=== PATIENT | female | born 1955 | race Caucasian/White ===

== ENCOUNTER 2020-07-25 08:33 | Day surgery (SDC) | payer MEDICARE, OTHER ==
[~2020-07-25] VITALS: Ht 158.8 cm; Wt 74.1 kg
[2020-07-25] VITALS (10 sets, daily range): BP systolic 138–162; BP diastolic 61–73; PULSE 54–81; TEMP 97.7–98.2
[2020-07-25] MEDS ORDERED: DEMADEX10 MG PO (09:00)
[2020-07-25] MEDS ORDERED: ESTRACE 1MG1 MG/TAB PO (09:01)
[2020-07-25] MEDS ORDERED: MAGNESIUM250 M1 PO (09:03)
[2020-07-25] MEDS ORDERED: CALCIUM 600 PLU1 TAB PO (09:04)
[2020-07-25] MEDS ORDERED: GLUCOSAMINE & C1 CA2 PO (09:05)
[2020-07-25] MEDS ORDERED: VITAMIN B COMPL1 SGL PO (09:06)
[2020-07-25] MEDS ORDERED: FLAXSEED OIL1000 MG PO (09:06)
[2020-07-25] MEDS ORDERED: THE MEDICINE S200 M2 PO (09:06)
[2020-07-25] MEDS ORDERED: NATURAL POTASS595 MG PO (09:07)
[2020-07-25] MEDS ORDERED: VITAMIND3 5000 PO (09:07)
[2020-07-25] MEDS ORDERED: PROBIOTIC FORMU1 CAP PO (09:07)
[2020-07-25] MEDS ORDERED: LIPITOR 10MG10 MG PO (09:08)
[2020-07-25] MEDS ORDERED: OCUVITE1 TA1 PO (09:08)
[2020-07-25] MEDS ORDERED: LIDEX CR 15GM TP (09:08)
[2020-07-25] MEDS ORDERED: MICARDIS80 MG PO (09:08)
[2020-07-25] MEDS ORDERED: MOTRIN 200200 MG/TAB PO (09:09)
[2020-07-25] MEDS ORDERED: TYLENOL 500MG500 MG PO (09:09)
[2020-07-25] MEDS ORDERED: TYLENOL PM EXTR1 TA1 PO (09:10)
[2020-07-25] MEDS ORDERED: PEPCID 20MG TAB20 MG PO (09:11)
--- NOTE | 2020-07-25 11:40 | NUR ---
The patient was taken back via cart to the operating room at this time. The patient's chart was sent with her to surgery. The patient's belongings were taken over to the recovery room and will be transferred up to the 3rd floor with the patient post operatively.
[2020-07-25] MEDS ORDERED: NORCO 325 MG-51 TAB PO (14:20)
[2020-07-25] MEDS ORDERED: COLACE 100100 MG/CAP PO (14:20)
--- NOTE | 2020-07-25 15:25 | NUR ---
PATIENT ARRIVED TO ROOM 330 VIA BED FROM PACU. PATIENT IS ALERT BUT DROWSY FROM SEDATION. ASSESSMENT COMPLETED AT THIS TIME. ABDOMINAL LAP SITES X5 MACO WITH EDGES WELL APPROXIMATED. INDWELLING ANDERSON CATHETER TO DEPENDENT DRAINAGE WITH LIGHT YELLOW-GREEN TINGED URINE. SCD'S TO BLE. SON PRESENT AT THE BEDSIDE. POST-OP VSS. WILL CONTINUE TO MONITOR.
--- NOTE | 2020-07-25 15:42 | NUR ---
PATIENT REPORTING ABDOMINAL PAIN RATED A 5/10 ON A 0-10 SCALE IN HER ABDOMEN. PATIENT UNABLE TO DESCRIBE THE PAIN. PATIENT TAKING WATER WITHOUT DIFFICULTIES. PATIENT GIVEN PRN TRAMADOL AT THIS TIME. WILL CONTINUE TO MONITOR.
--- NOTE | 2020-07-25 19:10 | NUR ---
PATIENT POST-OP VITALS STABLE AND COMPLETE. PATIENT STATES THAT SHE'S STARTING TO FEEL HUNGRY. PATIENT GIVEN CLEAR LIQUIDS ASSORTMENT. BEDSIDE REPORT GIVEN TO ANGIE SALAZAR.
--- NOTE | 2020-07-25 20:00 | NUR ---
Report received, assumed care for cook night. Assessment complete. VS stable. A&Ox3. Provided clear liquid diet. Will advance as tolerated. Denies pain/nausea/shortness of breath. Lap sites x5 to abdomen-edges well approximated. Plan of care discussed for this shift to include pain control/SCDs, ambulation and calling for questions/concerns. Verbalizes understanding/denies questions/concerns. Call light in reach. Will monitor.
--- NOTE | 2020-07-25 22:00 | NUR ---
Up out of bed for first time since surgery. Ambulated in hallway approx 200 feet without difficulty. Denies needs. Call light in reach. Will monitor.
[2020-07-26 01:03] VITALS: BP 131/55; PULSE 75; TEMP 98.2
[2020-07-26 03:45] VITALS: BP 118/60; PULSE 69; TEMP 98.2
--- NOTE | 2020-07-26 04:30 | NUR ---
Rested off and on this shift. TOlerating PO-diet advanced for breakfast. Adequate output to murphy cath-clear yellow urine. INTd per dr order. Pain adequately controlled wtih PO medications. Lap sites x5-no drainage noted. SCDs bilat/gum PRN. Denies needs. Call light in reach. Will monitor.
[2020-07-26 06:12] LABS: BASO % 0.3 % (0.0-2.0); EOS % 0.1 % (0-4.0); GRAN # 11.4 (1.4-6.5); GRAN % 79.1 % (42.2-75.2); HEMATOCRIT 37.8 % (37.0-47.0); HEMOGLOBIN 12.6 g/dl (12.5-16.0); LYMPH # 1.7 (1.2-3.4); LYMPH % 11.6 % (20.0-51.0); MEAN CELL VOLUME 90 fl (80.0-100.0); MEAN CORPUSCULAR HEMOGLOBIN 30 pg (27.0-31.0); MEAN CORPUSCULAR HGB CONC 33 g/dl (33.0-37.0); MEAN PLATELET VOLUME 11.2 fl (7.4-10.4); MONO # 1.2 (0.1-0.6); MONO % 8.6 % (1.7-9.3); PLATELET COUNT 255 K/mm3 (130-400)
[2020-07-26 06:22] LABS: CALCIUM 8.5 mg/dL (8.4-10.2); CREATININE, serum 0.84 (0.52-1.25)
--- NOTE | 2020-07-26 07:57 | NUR ---
Patient resting in bed, call light in reach and slip proof socks on. Patient was seen by PA, with urology. Will follow up on new orders.
[2020-07-26 08:01] VITALS: BP 127/62; PULSE 61; TEMP 97.9
--- NOTE | 2020-07-26 09:00 | NUR ---
This nurse removed patient murphy catheter per orders with 9 ml of saline removed from murphy bulb prior to removal. Patient had out put of 800 ml from murphy bag. Patient tolerated removal of murphy well. Lisa area was cleaned, patted dry and stat lock removed from right thigh. Patient resting in bed, call light in reach and awaiting staff to come walker her.
--- NOTE | 2020-07-26 10:59 | NUR ---
Patient's INT was removed to left lower arm.
--- NOTE | 2020-07-26 12:42 | NUR ---
Patient independent with brushing teeth, ambulating to toilet, toileting hygiene and dressing upper and lower extremities. Patient denies any questions at this time. Patient has urinated three times and reports that she does not have any more irritation with urination. Family will be coming to pick her up soon.
--- NOTE | 2020-07-26 14:39 | NUR ---
Patient's Health Summary, Discharge Summary and Home Meds printed and reviewed with patient. Stressed importance of follow up appointments. 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 Patient transported via wheelchair by PROGRAM DIRECTOR [employer]ABLE TELEVISION/Nadja and seatbelted for ride home with family. Patient denied any questions.
== END 2020-07-26 14:30 | disposition home or self-care (01) ==
LOC: SDCO 08:33 → JCC 15:25 → SDCO 07-26 14:30
PROVIDERS: Urology
DX: N99.3 Prolapse of vaginal vault after hysterectomy (principal); I10 Essential (primary) hypertension; E78.5 Hyperlipidemia, unspecified; Z90.49 Acquired absence of other specified parts of digestive tract; Z90.710 Acquired absence of both cervix and uterus; Z79.52 Long term (current) use of systemic steroids; Z88.1 Allergy status to other antibiotic agents; Z88.8 Allergy status to other drugs, medicaments and biological substances; K21.9 Gastro-esophageal reflux disease without esophagitis; M19.90 Unspecified osteoarthritis, unspecified site
CPT/HCPCS: OP; A4314; A9284; C1726; C1769; C1781; C1894; J0690; J1100; J1885; J2250; J2370; J2405; J2704; J3010; J7050; J7120